=== PATIENT | male | born 1960 | race Caucasian/White ===

== ENCOUNTER 2016-10-21 04:46 | Emergency (ER) | payer MEDICAID ==
[~2016-10-21] VITALS: Ht 177.8 cm; Wt 74.8 kg
--- NOTE | ~2016-10-21 | EKG ---
PATIENT: DANILO ROLDAN UNIT #: [id number] Ventricular Rate: 106 BPM Atrial Rate: 106 BPM P-R Interval: 170 ms QRS Duration: 74 ms Q-T Interval: 346 ms QTC Calculation(Bezet): 459 ms P [place]: 29 degrees Calculated R [place]: 52 degrees Calculated T [place]: 23 degrees Diagnosis Line: Sinus tachycardia Diagnosis Line: Nonspecific ST abnormality Diagnosis Line: Abnormal ECG Diagnosis Line: No previous ECGs available Diagnosis Line: Confirmed by JANE FORMAN MD ([id number]) on Diagnosis Line: 10/28/2016 6:30:52 AM INTERPRETING MD: BRITTNEY
--- NOTE | ~2016-10-21 | CT4 ---
[facility] A Service of [facility] & [facility] RADIOLOGY TEXT RESULTS PATIENT: DANILO ROLDAN LOCATION: SED : 64 UNIT #: [id number] AGE: [address]: Haja Oleary MD SEX: M ORDER DR: [id number] [place] [id number] MR#: [id number] #: [id number] NAME: DANILO ROLDAN. : 1960 SEX: M STUDY DATE/TIME: 10/21/2016 7:46 UNIT: SED ROOM: STUDY DESCRIPTION: CT Abd and Pelv Wo Cont Attending Physician: Haja Oleary M.D. Ordering Physician: Haja Oleary M.D. Primary Care Physician: Jaspal Pa M.D. MEDICAL IMAGING REPORT This report is preliminary unless electronic signature is present. EXAM Abdomen and pelvis CT no contrast 10/21/2016. INDICATIONS Alcohol, falling and weakness, pain all over. Alcohol on board today, hypokalemia, thrombocytopenia. No history of malignancy or prior surgery. TECHNIQUE Noncontrast abdomen and pelvis CT was performed and compared with 04/04/2011. This CT exam was performed with one or more of the following radiation dose reduction techniques: automatic exposure control, adjustment of mA and/or kV according to patient size, and iterative reconstruction. FINDINGS CT abdomen: Exam markedly degraded by noncontrast technique. There is middle lobe fibrosis. No pneumonia or pleural effusion. No pericardial effusion. Aorta demonstrates no aneurysm or dissection. Aorta demonstrates no aneurysm. There is atherosclerotic change of the coronary arteries. Spleen, adrenal glands and pancreas within normal limits. Tiny nonspecific calcification associated with the pancreatic head without ductal dilatation. This may reflect sequela of prior bouts of pancreatitis. Kidneys demonstrate no hydronephrosis or radiopaque stone. There is a tiny sand-like stone at the right UVJ level without distinct evidence of obstruction on CT. Correlate with urinalysis. There is extensive cholelithiasis. Extensive fatty infiltration of the liver. New cirrhotic features of the liver since the prior study. There is heterogeneity of the liver parenchyma which is also new from the prior study. Although the examination was performed without the benefit of STS. [facility] A Service of [facility] & [facility] RADIOLOGY TEXT RESULTS PATIENT: DANILO ROLDAN LOCATION: SED : 64 UNIT #: [id number] AGE: [address]: Haja Oleary MD SEX: M ORDER DR: intravenous contrast, there are imaging features suspicious for underlying masses in both hepatic lobes. Subtle probable low density masses in the inferior left hepatic lobe measuring 1.6 and 1 cm respectively. Additional probable mass bordering segments 2 and 3 in the subcapsular left hepatic lobe measuring about 2.9 cm. The patient would benefit from further evaluation of the liver with multiphase protocol CT or MRI if the patient is a candidate for MRI. Trace perihepatic ascites. CT pelvis: Bladder distended. Prostate within normal limits. Nonspecific mild presacral edema present. There is wall thickening of the rectum. Correlate with any history of proctitis. Underlying mass also in the differential but less likely and should be corroborated with physical exam. No evidence of bowel obstruction. Appendix normal. Small amount of fluid in the right pericolic gutter. Collateral vessels are present in the left upper quadrant and right lower quadrant. Inguinal canals are unremarkable. No suspicious bone lesion. IMPRESSION 1. Interval development of cirrhosis against a background of persistent significant fatty infiltration of the liver. Heterogeneity of the liver even with noncontrast technique is new and suspicious for underlying liver masses. The largest is in the left hepatic lobe. Suggest further evaluation with multiphase protocol MRI or CT with and without contrast when clinically appropriate for further assessment of the liver. Underlying malignancy is not excluded. Differential would include multifocal hepatocellular carcinoma or metastatic disease from an unknown primary. 2. Small amount of perihepatic ascites. Collateral vessels indicative of underlying portal hypertension. 3. Extensive cholelithiasis without additional distinct CT evidence of acute cholecystitis. Ultrasound may be useful for further assessment. 4. Tiny 1 mm stone at the right UVJ level without associated obstruction on CT. Correlate with urinalysis. 5. There is wall thickening circumferentially of the rectum which may reflect proctitis. Circumferential mass not excluded. This could be corroborated with physical exam or colonoscopy if not recently performed. 6. Normal appendix. Dictated by... Sudarshan Fisher M.D. THIS IS AN ELECTRONICALLY VERIFIED REPORT Sudarshan Fisher M.D. at 10/22/2016 7:38 AM DAWOOD/maciel TD: 10/21/2016 15:57 JOB #: [id number] [facility]. [facility] A Service of [facility] & [facility] RADIOLOGY TEXT RESULTS PATIENT: DANILO ROLDAN LOCATION: SED : 64 UNIT #: [id number] AGE: [address]: Haja Oleary MD SEX: M ORDER DR: MEDICAL IMAGING REPORT Page 1 of 1
[~2016-10-21 04:46] MED LIST: NAPROSYN-EC500 M1 PO; NO MEDICATIONS
[2016-10-21 06:17] LABS: BASOPHIL# 0.1 X10e3 (0-0.3); EOSINOPHIL% 0.6 % (0.0-7.0); LYMPHOCYTE# 1.3 X10e3 (1.0-3.5); NEUTROPHIL# 3.7 X10e3 (1.5-7.1); RED BLOOD COUNT 3.48 X10e (3.90-5.60)
[2016-10-21 06:18] LABS: POC - CKMB <1.0 ng/mL (0.0-7.9); POC - TROPONIN <0.05 ng/mL (<=0.05)
[2016-10-21 06:19] LABS: BASOPHIL% 0.9 % (0-2.5); HEMATOCRIT 35.6 % (38.0-50.0); HEMOGLOBIN 12.2 gm/dL (13.0-16.0); LYMPHOCYTE% 23.3 % (17.0-45.0); MEAN CELL VOLUME 102.3 FL (83-96); MEAN CORPUSCULAR HEMOGLOBIN 35.2 PG (28-34); MEAN CORPUSCULAR HGB CONC 34.4 g/dL (30-36); MEAN PLATELET VOLUME 11.2 FL (6.5-11.5); MONOCYTE# 0.5 X10e3 (0-1.0); MONOCYTE% 8.4 % (3.0-12.0); NEUTROPHIL% 66.8 % (40-75); RED CELL DISTRIBUTION WIDTH 13.7 % (11.0-15.5); WHITE BLOOD COUNT 5.6 X10e3 (4.0-10.5)
[2016-10-21 06:21] LABS: INR 1.4; PROTHROMBIN TIME (PATIENT) 16.2 SECONDS (9.5-12.4)
[2016-10-21 06:28] LABS: PARTIAL THROMBOPLASTIN TIME 30.4 SECONDS (25.6-38.1)
[2016-10-21 06:29] LABS: DIFF IND YES; PLATELET COUNT 44 X10e3 (140-420)
[2016-10-21 06:33] LABS: ALBUMIN SERUM 3.1 g/dL (3.5-5.0); BILIRUBIN,INDIRECT 3.1 mg/dL (0.0-0.9); BILIRUBIN,TOTAL 6.1 mg/dL (0.2-2.0); BUN/CREATININE RATIO 17.14; CALCIUM SERUM 9.1 mg/dL (8.4-10.2); CREATININE SERUM 0.7 mg/dL (0.6-1.4); MAGNESIUM 1.5 mg/dL (1.6-3.0); PLATELET ESTIMATE DECREASED (NORMAL); PROTEIN TOTAL SERUM 7.1 g/dL (6.0-8.3)
[2016-10-21 06:34] LABS: ANISOCYTOSIS SL
[2016-10-21 07:50] LABS: AMYLASE 16 U/L (0-46); LIPASE 25 U/L (22-51)
[2016-10-21 09:18] LABS: URINE SOURCE CLEAN CATCH
[2016-10-21 09:22] LABS: URINE APPEARANCE HAZY; URINE BLOOD NEG (NEG); URINE KETONE 1+ (NEG); URINE LEUKOCYTE ESTERASE TRACE (NEG); URINE NITRATE POS (NEG); URINE PH 6.5 (5-8); URINE PROTEIN 1+ (NEG); URINE UROBILINOGEN >=8.0 MG/DL (NORM)
[2016-10-21 09:26] LABS: URINE GLUCOSE 50 MG/DL (NORM)
[2016-10-21 09:27] LABS: MICRO INDICATED? YES; URINE BILIRUBIN POS (NEG); URINE COLOR BROWN
[2016-10-21 09:37] LABS: AMPHETAMINE NEG (NEG); BARBITURATES NEG (NEG); BENZODIAZEPINES NEG (NEG); COCAINE NEG (NEG); CULTURE INDICATED? YES; MARIJUANA NEG (NEG); OPIATES NEG (NEG); TRICYCLIC ANTIDEPRESSANTS NEG (NEG); U METHADONE NEG (NEG); URINE BACTERIA 1+ (NEG); URINE RBC 0-2 /[HPF] (0-2); URINE SQUAMOUS EPITHELIAL CELL RARE /[HPF]; URINE WBC 0-2 /[HPF] (0-5)
== END 2016-10-21 15:15 ==
LOC: SED 04:46
PROVIDERS: Emergency Medicine
DX: C22.8 Malignant neoplasm of liver, primary, unspecified as to type (principal); C78.5 Secondary malignant neoplasm of large intestine and rectum; E87.6 Hypokalemia; D69.6 Thrombocytopenia, unspecified; F10.10 Alcohol abuse, uncomplicated; F17.200 Nicotine dependence, unspecified, uncomplicated
CPT/HCPCS: 36415; 74176; 80048; 80076; 80307; 81003; 82150; 82553; 83690; 83735; 83874; 84484; 85025; 85610; 85730; 87086; 93005; 96365; 96367; 96375; 99285; G0480; J2060; J3411; J3475